=== PATIENT | female | born 1980 | race Caucasian/White ===

== ENCOUNTER 2020-01-24 19:04 | Emergency (ER) | payer SELFPAY ==
[~2020-01-24] VITALS: Ht 167.6 cm; Wt 95.5 kg
[~2020-01-24 19:04] MED LIST: EFFEXOR75 MG PO; KLONOPIN1 MG PO; NAPROSYN500 MG PO; TYLENOL W/CODEI1 TAB PO
[2020-01-24 19:22] VITALS: Ht 167.6 cm; Wt 95.5 kg
[2020-01-24] MEDS ORDERED: ZOFRAN ODT4 MG/UDTAB PO (20:08)
[2020-01-24] MEDS ORDERED: BUTALB-APAP-CA1 EACH PO (20:08)
[2020-01-24 20:21] VITALS: BP 130/75
== END 2020-01-24 20:21 | disposition home or self-care (01) ==
LOC: D.ER 19:04
DX: G43.909 Migraine, unspecified, not intractable, without status migrainosus (principal); R09.89 Other specified symptoms and signs involving the circulatory and respiratory systems

== ENCOUNTER 2020-07-09 13:41 | Emergency (ER) | payer MEDICAID ==
[~2020-07-09] VITALS: Ht 167.6 cm; Wt 100.0 kg
[~2020-07-09 13:41] MED LIST changes: +BUTALB-APAP-CA1 EACH PO; +ZOFRAN ODT4 MG/UDTAB PO
[2020-07-09 13:53] VITALS: BP 124/79; Ht 167.6 cm; Wt 100.0 kg
[2020-07-09 14:16] LABS: BILIRUBIN NEGATIVE (NEGATIVE); KETONE NEGATIVE (NEGATIVE); NITRITE NEGATIVE (NEGATIVE); UROBILINOGEN NORMAL mg/dL (< 2)
[2020-07-09 14:17] LABS: BASOPHILS 0.1 % (0-2); EOSINOPHILS 1.2 % (0-7); HEMATOCRIT 43.6 % (36.0-48.0); HEMOGLOBIN 14.6 g/dL (12-16); IMMATURE GRANULOCYTES 0.3 % (0-5); MCH 30.3 pg (26.0-34.0); MCHC 33.5 g/dL (31.0-37.0); MCV 90.5 fL (80.0-100.0); MONOCYTES 7.4 % (2-11); RBC 4.82 10x6/uL (4.00-5.40); RDW 12.8 % (11.5-14.5)
[2020-07-09 14:18] LABS: WHITE CELLS - URINE 0-5 HPF (0-4)
[2020-07-09 14:19] LABS: BACTERIA MODERATE HPF (NONE SEEN); EPITHELIAL CELLS 0-5 /hpf (0-5)
[2020-07-09 14:20] LABS: PLATELET COUNT 358 10x3/uL (130-400)
[2020-07-09 14:24] LABS: ANION GAP 12.9 mmol/L (8-16); CARBON DIOXIDE 23.1 mmol/L (21.0-32.0); CREATININE - SERUM 0.9 mg/dL (0.6-1.3)
[2020-07-09 14:31] LABS: ALBUMIN 3.3 g/dL (3.4-5.0); BILIRUBIN - TOTAL 0.48 mg/dL (0.2-1.3); PROTEIN - SERUM 7.3 g/dL (6.4-8.2)
[2020-07-09 15:12] LABS: CKMB 0.1 U/L (0.0-3.6); CREATINE KINASE 46 UL (21-215); TROPONIN-I < 0.017 ng/mL (0.000-0.060)
[2020-07-09] MEDS ORDERED: HYDROCODON-ACE1 EA10 PO (18:23)
[2020-07-09] MEDS ORDERED: ZOFRAN ODT4 MG/UDTAB PO (18:23)
[2020-07-09] MEDS ORDERED: FLOMAX0.4 MG PO (18:23)
== END 2020-07-09 18:48 | disposition home or self-care (01) ==
LOC: D.ER 13:41
PROVIDERS: Family Medicine
DX: N20.0 Calculus of kidney (principal); R10.9 Unspecified abdominal pain

== ENCOUNTER 2020-07-10 16:49 | Emergency (ER) | payer OTHER ==
[~2020-07-10] VITALS: Ht 167.6 cm; Wt 100.0 kg
[~2020-07-10 16:49] MED LIST changes: +FLOMAX0.4 MG PO; +HYDROCODON-ACE1 EA10 PO
[2020-07-10 17:02] VITALS: Ht 167.6 cm; Wt 100.0 kg
[2020-07-10 18:03] LABS: BASOPHILS 0.3 % (0-2); EOSINOPHILS 1.9 % (0-7); HEMOGLOBIN 13.7 g/dL (12-16); IMMATURE GRANULOCYTES 0.2 % (0-5); LYMPHOCYTES 23.7 % (15-50); MCH 30.4 pg (26.0-34.0); MCHC 33.4 g/dL (31.0-37.0); MCV 91.1 fL (80.0-100.0); MEAN PLATELET VOLUME 9.5 fL (7.4-10.4); MONOCYTES 9.3 % (2-11); NEUTROPHILS 64.6 % (40-80); PLATELET COUNT 342 10x3/uL (130-400); RDW 12.9 % (11.5-14.5); WBC 8.9 10x3/uL (4.8-10.8)
[2020-07-10 18:14] LABS: BILIRUBIN NEGATIVE (NEGATIVE); KETONE NEGATIVE (NEGATIVE); NITRITE NEGATIVE (NEGATIVE); UROBILINOGEN NORMAL mg/dL (< 2)
[2020-07-10 18:18] LABS: CARBON DIOXIDE 22.2 mmol/L (21.0-32.0); POTASSIUM - SERUM 4.2 mmol/L (3.5-5.1)
[2020-07-10 18:24] LABS: ALBUMIN 3.1 g/dL (3.4-5.0); BILIRUBIN - TOTAL 0.17 mg/dL (0.2-1.3); PROTEIN - SERUM 6.8 g/dL (6.4-8.2)
[2020-07-10 21:15] VITALS: BP 97/54
== END 2020-07-10 21:42 | disposition other institution (70) ==
LOC: D.ER 16:49
PROVIDERS: Family Medicine
DX: N13.2 Hydronephrosis with renal and ureteral calculous obstruction (principal); R94.4 Abnormal results of kidney function studies; R10.9 Unspecified abdominal pain

== ENCOUNTER 2021-01-03 21:24 | Emergency (ER) | payer OTHER ==
[~2021-01-03] VITALS: Ht 167.6 cm; Wt 95.5 kg
[2021-01-03 21:32] VITALS: BP 157/128; Ht 167.6 cm; Wt 95.5 kg
[2021-01-03] MEDS ORDERED: VOLTAREN75 MG PO (22:27)
[2021-01-03] MEDS ORDERED: ZANAFLEX4 MG PO (22:27)
--- NOTE | 2021-01-03 23:07 | NUR ---
PATIENT IN ER FOR FALLING AND HURTING HER SHOULDER. SHE HAS A HISTORY OF SUICIDIAL IDEATIONS 20 YEARS AGO. SHE IS NOT SUICIDIAL AT THIS TIME. 1-800 NUMBER GIVEN FOR FUTURE REFERENCE. SHE MAKES GOOD EYE CONTACT AND GIVES REASONS FOR LIVING.
== END 2021-01-03 23:14 | disposition home or self-care (01) ==
LOC: D.ER 21:24
DX: M25.511 Pain in right shoulder (principal); S46.911A Strain of unspecified muscle, fascia and tendon at shoulder and upper arm level, right arm, initial encounter; S16.1XXA Strain of muscle, fascia and tendon at neck level, initial encounter; W19.XXXA Unspecified fall, initial encounter; Y93.9 Activity, unspecified; Y92.9 Unspecified place or not applicable